=== PATIENT | female | born 1965 | race Caucasian/White ===

== ENCOUNTER 2018-04-09 01:28 | Emergency (ER) | payer MEDICARE, MEDICAID, OTHER ==
[2018-04-09] MEDS ORDERED: Fentanyl 100 MCG/2 ML VIAL ONE (02:19)
[2018-04-09 03:24] LABS: #Eosinphils 0.2 thou/uL (0.0-0.7); #Monocytes 0.6 thou/uL (0.11-0.59); #Neutrophils 8.3 thou/uL (1.40-6.50); %Basophils 0.4 % (0.0-1.0); %Eosinophils 2.2 % (0.0-10.0); %Lymphocytes 18.2 % (21.0-51.0); %Monocytes 5.2 % (0.0-10.0); Hemoglobin 10.4 g/dL (12.0-16.0); Mean Corpuscular HGB CONC 34.5 g/dL (32.0-36.0); Mean Corpuscular Hemoglobin 26.3 pg (27.0-31.0); Mean Corpuscular Volume 76.4 fL (78.0-98.0); Mean Platelet Volume 7.1 fL (7.4-10.4); Platelet Count 247 thou/uL (130-400); RBC Distribution Width 14.4 % (11.5-14.5); Red Blood Cell (RBC) Count 3.97 mill/uL (4.20-5.40); White Blood Cell (WBC) Count 11.2 thou/uL (4.8-10.8)
[2018-04-09 03:35] LABS: ALT (SGPT) 12 U/L (8-55); AST (SGOT) 11 U/L (5-34); Albumin 3.3 g/dL (3.5-5.0); Alkaline Phosphatase 78 U/L (40-150); Anion Gap 14 mmol/L (10-20); BUN (Urea Nitrogen) 9 mg/dL (9.8-20.1); Bilirubin, Total 0.3 mg/dL (0.2-1.2); Calc. Creatinine Clearance 0 mL/min (70-130); Calcium 8.2 mg/dL (7.8-10.44); Carbon Dioxide 20 mmol/L (22-29); Chloride 107 mmol/L (98-107); Estimated GFR-MDRD 75; Globulin 2.5 g/dL (2.4-3.5); Glucose 147 mg/dL (70-105); Potassium 3.8 mmol/L (3.5-5.1); Protein, Total 5.8 g/dL (6.0-8.3); Sodium 137 mmol/L (136-145)
--- NOTE | 2018-04-09 10:21 | CT ---
PRELIMINARY REPORT/[facility]/EMERGENTY AFTER-HOURS PROCEDURE CT Chest With Intravenous Contrast CLINICAL HISTORY: 52 years old, female; Injury or trauma; Fall; Initial encounter; Abrasion; Patient HX: F18 reports to ed C/O vomiting. Pt reports she has been vomiting since . Pt reports she went to pcp and was given zofran. Pt reports she woke up this morning and was feeling better. Pt reports she started walking around and stomach began to have severe abdominal pain. Pt reports she was trying to use the restroom but felt as if she couldn't. Pt reports shortly after start to have multiple episodes of vom iting. Pt denies urinary complaint or possible . Lmp march 17. TECHNIQUE: Axial computed tomography images of the chest with intravenous contrast. COMPARISON: No relevant prior studies available. FINDINGS: Lungs: 5 mm groundglass semisolid pulmonary nodule along the right major fissure medially (series 2, image 26). Minimal bibasilar atelectasis. Pleural space: Normal. No pneumothorax. No significant effusion. Heart: Normal. No cardiomegaly. No significant pericardial effusion. Bones/joints: Multilevel thoracic spine degenerative changes. No acute fracture. No dislocation. Soft tissues: Normal. Vasculature: Normal. No thoracic aortic aneurysm. Lymph nodes: Normal. IMPRESSION: 1. No acute thoracic abnormality. 2. 5 mm semisolid pulmonary nodule as described above. ACR White Paper guidelines (Joshua, et al. R adiology 2017; 284(1):228-43) suggest that no follow-up is necessary. CT Abdomen and Pelvis With Intravenous Contrast TECHNIQUE: Axial computed tomography images of the abdomen and pelvis with intravenous contrast. COMPARISON: No relevant prior studies available. FINDINGS: Lung bases: Normal. No mass. No consolidation. ABDOMEN: Liver: Normal. Gallbladder and bile ducts: Normal. Pancreas: Normal. Spleen: 9 mm hypodensity within the posterior spleen, possibly cyst or hemangioma, but not definitive ly characterized on this study. Adrenals: Normal. Kidneys and ureters: Nonobstructive 5 mm left renal calculus. Stomach and bowel: Normal. PELVIS: Appendix: No findings to suggest acute appendicitis. Bladder: Normal. Reproductive: Normal as visualized. ABDOMEN and PELVIS: Intraperitoneal space: Normal. No free air. No significant fluid collection. Bones/joints: No acute fracture. No dislocation. Soft tissues: Normal. Vasculature: Atherosclerotic disease of the abdominal aorta. Multiple phleboliths within the pelvis. No abdominal aortic aneurysm. Lymph nodes: Normal. IMPRESSION: 1. No acute abdominal or pelvic abnormality. 2. Incidental/non-acute findings are described above. Thank you for allowing us to participate in the care of your patient. Dictated and Authenticated by: Ky Vera MD 04/09/2018 3:33 AM Central Time ([place] & [place]) FINAL REPORT CT CHEST AND ABDOMEN AND PELVIS: Date: 04/09/18 FINDINGS: I agree with the preliminary report provided by [facility]. No definite acute traumatic injury is seen invo lving the chest, abdomen, and pelvis. There is a 5.0 mm subpleural ground-glass nodule seen adjacent to the right major fissure within the right lower lobe. There is subsegmental atelectasis seen diffus alejo throughout the lungs. No definite acute traumatic injury is seen involving the abdomen or pelvis. There is a nonobstructing calculus within the left mid kidney. There is a surgical clip seen within the right mid abdomen which is nonspecific. This is likely from a displaced ligation clip involving t he patient's right fallopian tube. There is a left tubal ligation clip in place. No acute osseous abn ormality is evident. IMPRESSION: 1. Suspected displaced tubal ligation clip within the right lower quadrant of the abdomen. This is n ot affixed to the patient's fallopian tube. 2. No acute traumatic injury seen involving the chest, abdomen, or pelvis. 3. 5.0 mm pulmonary nodule right lower lobe. If the patient has no history of malignancy, no additio nal follow-up is recommended. If there is any history of malignancy, a short-term 6-8 week follow-up is recommended. 4. Left nephrolithiasis. POS: [facility]
--- NOTE | 2018-04-09 10:22 | CT ---
PRELIMINARY REPORT/[facility]/EMERGENTY AFTER-HOURS PROCEDURE CT Cervical Spine Without Intravenous Contrast CLINICAL HISTORY: 52 years old, female; Injury or trauma; Fall; Initial encounter; Abrasion; Patient HX: F18 reports to ed C/O vomiting. Pt reports she has been vomiting since . Pt reports she went to pcp and was given zofran. Pt reports she woke up this morning and was feeling better. Pt reports she started walking around and stomach began to have severe abdominal pain. Pt reports she was trying to use the restroom but felt as if she couldn't. Pt reports shortly after start to have multiple episodes of vom iting. Pt denies urinary complaint or possible . Lmp march 17. TECHNIQUE: Axial computed tomography images of the cervical spine without intravenous contrast. COMPARISON: No relevant prior studies available. FINDINGS: Vertebrae: Bulky anterior vertebral body osteophytes at the C4-C7 levels. No acute fracture. Discs/spinal canal/neural foramina: Multilevel degenerative disc disease. Posterior osteophyte comple xes at the C5-6 and C6-7 levels, causing central to second edition. Multilevel bilateral facet and un covertebral arthropathy. Degenerative changes of the atlantoaxial articulation. Right C3-4 neural foraminal narrowing. Soft tissues: Normal. Lung apices: Normal as visualized. IMPRESSION: 1. No acute findings. 2. Non-acute findings are described above. Thank you for allowing us to participate in the care of your patient. Dictated and Authenticated by: Ky Vera MD 04/09/2018 3:09 AM Central Time ([place] & [place]) FINAL REPORT EMERGENCY AFTER HOURS CT CERVICAL SPINE PERFORMED WITHOUT CONTRAST ENHANCEMENT: Date: 04/09/18 HISTORY: Patient is status post fall with neck injury. FINDINGS: The vertebral bodies are normal in height. There are prominent anterior osteophytes present along the course of the spine. The facets show degenerative changes, but are in normal alignment. There is a left paracentral osteophyte at C4-5, minimally indenting the cord at this level. There are posterior osteophytic changes at C5-6 associated with mild degree of canal stenosis and there is lef t foraminal narrowing. There is no CT evidence for fracture. The lung apices are clear. IMPRESSION: 1. Marked arthritic changes of the spine. There is some generalized borderline canal narrowing with some areas of mild stenosis as discussed above. 2. No CT evidence of fracture. This report is in agreement with the preliminary report issued by [facility].
--- NOTE | 2018-04-09 10:24 | CT ---
PRELIMINARY REPORT/[facility]/EMERGENTY AFTER-HOURS PROCEDURE CT Head Without Intravenous Contrast CLINICAL HISTORY: 52 years old, female; Injury or trauma; Fall; Initial encounter; Abrasion; Not specified; Patient HX: F18 reports to ed C/O vomiting. Pt reports she has been vomiting since . Pt reports she went to p cp and was given zofran. Pt reports she woke up this morning and was feeling better. Pt reports she s tarted walking around and stomach began to have severe abdominal pain. Pt reports she was trying to use the restroom but felt as if she couldn't. Pt reports shortly after start to have multiple epis odes of vomiting. Pt denies urinary complaint or possible . Lmp march 17. TECHNIQUE: Axial computed tomography images of the head/brain without intravenous contrast. All CT scans at this facility use at least one of these dose optimization techniques: automated exposure control; Ma and/ or kV adjustment per patient size (includes targeted exams where dose is matched to clinical indication); or iterative reconstruction. COMPARISON: No relevant prior studies available. FINDINGS: Brain: Normal. Ventricles: Normal. Bones/joints: Normal. No acute fracture. Soft tissues: Normal. Sinuses: Normal. Mastoid air cells: Normal as visualized. No mastoid effusion. IMPRESSION: Normal head/brain CT. Thank you for allowing us to participate in the care of your patient. Dictated and Authenticated by: Ky Vera MD 04/09/2018 2:55 AM Central Time ([place] & [place]) FINAL REPORT EMERGENCY AFTER HOURS CT BRAIN PERFORMED WITHOUT CONTRAST ENHANCEMENT: Date: 04/09/18 HISTORY: Head injury, status post fall. FINDINGS: The ventricular and cisternal system is within normal limits. There are no signs of intracerebral hem orrhage or extra-axial fluid collections. Mastoid air cells and visualized sinuses are clear. IMPRESSION: No acute intracranial abnormalities. This report is in agreement with the preliminary report issued by [facility].
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
== END 2018-04-09 04:37 | disposition home or self-care (01) ==
LOC: ERS 01:28
DX: S46.912A Strain of unspecified muscle, fascia and tendon at shoulder and upper arm level, left arm, initial encounter (principal); M54.2 Cervicalgia; M54.5 Low back pain; M54.6 Pain in thoracic spine; E11.9 Type 2 diabetes mellitus without complications; V49.9XXA Car occupant (driver) (passenger) injured in unspecified traffic accident, initial encounter
CPT/HCPCS: 36415; 70450; 71260; 72125; 74177; 80053; 85025; 93005; 96374; J3010